=== PATIENT | male | born 1980 | race Caucasian/White ===

== ENCOUNTER 2025-01-14 13:43 | Outpatient (CLI) | payer OTHER ==
--- NOTE | 2025-01-14 19:14 | CARDIOLOGY REPORT ---
APPROVED REPORT EXAM: Comprehensive 2D, Doppler, and color-flow Echocardiogram. 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 190.4 cm/s AoV VTI 42.0 cm AO Peak GR. 14.2 mmHg AO Mean GR. 8 mmHg LVOT VTI 32.64 cm LVOT Peak Uzair. 142.2 cm/s RAMONA (VMAX) 2.96 cm2 RAMONA (VTI) 3.08 cm2 Tricuspid Valve TR P. Velocity 268 cm/s RAP ESTIMATE 10 mmHg TR Peak Gr. 29 mmHg RVSP 39 mmHg LEFT VENTRICLE Increased LV size and wall thickness. Overall systolic function is normal. LVEF is 70%; GLS -22.9 %. RIGHT VENTRICLE RV is normal size and function. ATRIA The left atrium size is normal. Right atrium is moderately dilated. AORTIC VALVE Trileaflet AV appears minimal sclerotic without stenosis or insufficiency. MITRAL VALVE Mild MV leaflet thiockening without stenosis. mild regurgitation. TRICUSPID VALVE TV appears structurally normal with trace regurgitation. PULMONIC VALVE Normal PV without stenosis, physiologic insufficiency. GREAT VESSELS Aortic root is normal in size. Ascending aorta is normal in size. PERICARDIUM Normal pericardium. No effusion. Other Information Study Quality: Adequate Conclusion Increased LV size and wall thickness. Overall systolic function is normal. LVEF is 70%; GLS -22.9 %. RV is normal size and function. The left atrium size is normal. Right atrium is moderately dilated. Trileaflet AV appears minimal sclerotic without stenosis or insufficiency. Mild MV leaflet thiockening without stenosis. mild regurgitation. TV appears structurally normal with trace regurgitation. Normal pericardium. No effusion.
== END 2025-01-14 23:59 | disposition home or self-care (01) ==
LOC: CARD DIAG 13:43
PROVIDERS: ATTEND Chiropractor
DX: I34.0 Nonrheumatic mitral (valve) insufficiency (principal); I51.7 Cardiomegaly; I25.9 Chronic ischemic heart disease, unspecified; K73.9 Chronic hepatitis, unspecified; R00.1 Bradycardia, unspecified
CPT/HCPCS: 36415; 80076; 93306

== ENCOUNTER 2025-04-17 10:29 | Outpatient (CLI) | payer OTHER | END 2025-04-17 23:59 | disposition home or self-care (01) | LOC: RAD 10:29 | PROVIDERS: ATTEND Chiropractor | DX: M06.9 Rheumatoid arthritis, unspecified (principal) | CPT/HCPCS: 36415; 84436; 84439; 84443; 84481 ==